=== PATIENT | female | born 1960 | race Caucasian/White ===

== ENCOUNTER 2020-12-20 10:15 | Emergency (ER) | payer BC, OTHER ==
[~2020-12-20] VITALS: Ht 162.6 cm; Wt 65.8 kg
--- NOTE | ~2020-12-20 | EMS ---
[facility] [address] [place] [address] EMS Patient Care Report Name: SAMMY VU Room #: REG JADON Uriarte#: [id number] Admission: 12/20/20 Attend Phys: Discharge: Date of : 60 Report #: [id number] THIS REPORT FOR: //name// Report Transmitted: 12/20/2020 10:32 EMS Care Summary [facility] Incident [id number] @ 12/20/2020 09:37 Incident Location [address] [place] [address] [place] [address] Patient SAMMY VU Female, 60 Years 1960 Patient Address [address] [place] [address] Patient History Hypertension (HTN),Hyperlipidemia,Depression, Patient Allergies No known allergies, Patient Medications Other, Celexa, Chief Complaint lacerations to forehead Disposition Transported No Lights/[place] Dispatch Reason Falls Transported To [facility] Narrative [id number] arrived to the sidewalk of an assisted living facility to find pt. sitting up on sidewalk, A & o x 3. CFD2 FFs have wrapped pt's head in gauze and state that she has two lacerations to her forehead, one on each side of her nose. FFs state that at least one of them may need sutures. Lacerations are [facility] [address] [place] [address] EMS Patient Care Report Name: SAMMY VU Room #: REG JADON Uriarte#: [id number] Admission: 12/20/20 Attend Phys: Discharge: Date of : 60 Report #: [id number] not visualized by [id number] medics. Pt. states she tripped on the curb to the sidewalk and that she does not think she lost consciousness. Pt. denies other injuries, including neck and back, and states that she has a headache. Pt. is helped to her feet and has no trouble supporting her weight, taking a couple steps to the cot, or sitting down without assistance. Pt. is moved to unit for vitals and EKG. Pt. is transported without further change to [facility] and she moves herself to the bed. Pt. care is transferred to nurse staff community health and pt. is left in Room 2. Initial Vitals @10:03P: 64,BP: 164/85,SpO2: 97, @10:07P: 63,BP: 165/78,SpO2: 98, @10:02P: 68,SpO2: 97, @09:51P: 71,R: 12,BP: 177/93,Pain: 4/10,GCS: 15,Temp: 97.8F,SpO2: 95,Revised Trauma: 12, Assessments @10:16MENTAL:Person Oriented,Time Oriented,Place Oriented,Event Oriented,SKIN:HEENT:Head/Face: Other,Eyes: Left Pupil: 3-mm,Eyes: Right Pupil: 3-mm,Neck/Airway: No Abnormalities,LUNG SOUNDS:General: No Abnormalities,ABDOMEN:General: No Abnormalities,PELVIS//GI:EXTREMITIES:Left Arm: No Abnormalities,Right Arm: No Abnormalities,Left Leg: No Abnormalities,Right Leg: No Abnormalities,PULSE:NEURO:No Abnormalities, Impression Injury of Face Procedures @10:03Surgical Mask on PatientResponse: [email or web address]: UnchangedSucceeded Timeline [employer] HELPER,Bandaging,Response: UnchangedSucceeded, 09:35,Call Received 09:35,Psap Call 09:37,Dispatched 09:38,En Route 09:45,On Scene 09:46,At Patient 09:51,BP: 177/93 M,PULSE: 71,RR: 12 R,SPO2: 95 Ox,ETCO2: ,BG: ,PAIN: 4,GCS: 15, 09:55,Depart Scene 10:02,BP: / M,PULSE: 68,RR: R,SPO2: 97 Ox,ETCO2: ,BG: ,PAIN: ,GCS: , 10:03,BP: 164/85 M,PULSE: 64,RR: R,SPO2: 97 Ox,ETCO2: ,BG: ,PAIN: ,GCS: , 10:03,Surgical Mask on Patient,Response: Unchanged 10:07,BP: 165/78 M,PULSE: 63,RR: R,SPO2: 98 Ox,ETCO2: ,BG: ,PAIN: ,GCS: , [facility] [address] [address] EMS Patient Care Report Name: SAMMY VU Room #: REG JADON Uriarte#: [id number] Admission: 12/20/20 Attend Phys: Discharge: Date of : 60 Report #: [id number] 10:10,At Destination 10:30,Call Closed Disclaimer [email or web address] Copyright 2020 [employer] This EMS Care Summary contains data elements from the applicable legal record (which may be displayed differently). It is designed to provide pertinent information for the following purposes: continuity of care, clinical quality, and state data reporting. The complete legal record is available to ED staff and administrators of the receiving hospital in [employer]'s Patient Tracker. All data is provided "as is."
[2020-12-20 13:25] VITALS: BP 177/76
== END 2020-12-20 14:07 | disposition home or self-care (01) ==
LOC: ER 10:15
DX: S01.81XA Laceration without foreign body of other part of head, initial encounter (principal); W01.0XXA Fall on same level from slipping, tripping and stumbling without subsequent striking against object, initial encounter; Y93.01 Activity, walking, marching and hiking; Y92.89 Other specified places as the place of occurrence of the external cause; Y99.9 Unspecified external cause status